=== PATIENT | male | born 1980 | race Caucasian/White ===

== ENCOUNTER 2019-04-04 14:25 | Emergency (ER) | payer OTHER ==
[~2019-04-04] VITALS: Ht 180.3 cm; Wt 98.6 kg
[2019-04-04 14:25] VITALS: BP 151/93
[2019-04-04] MEDS ORDERED: MULT1TAB8 PO (14:38)
[2019-04-04] MEDS ORDERED: ACETAMINOPHEN 500 MG TAB PO ONE (15:15)
== END 2019-04-04 15:34 | disposition home or self-care (01) ==
LOC: M ED 14:25
DX: S39.012A Strain of muscle, fascia and tendon of lower back, initial encounter (principal); X58.XXXA Exposure to other specified factors, initial encounter; Y92.9 Unspecified place or not applicable; Y93.89 Activity, other specified; Y99.9 Unspecified external cause status; Z79.899 Other long term (current) drug therapy; Z88.0 Allergy status to penicillin